=== PATIENT | female | born 1940 | race Caucasian/White ===

== ENCOUNTER 2022-02-08 20:26 | Observation (INO) ==
[2022-02-08] MEDS ORDERED: 0.9 % Sodium Chloride 1,000 ML IVC ONE ×2 (21:05→22:30)
[2022-02-08 21:13] LABS: Bilirubin,Urine Negative (Negative); Blood,Urine Negative (Negative); Clarity,Urine Clear (Clear); Color,Urine Yellow (Yellow); Glucose,Urine (UA) >=1000 mg/dL (Normal); Ketones,Urine Trace mg/dL (Negative); Leukocyte Esterase,Urine Negative (Negative); Nitrite,Urine Negative (Negative); PH,Urine 5.5 pH Units (5.0-8.0); Protein,Urine Negative (Neg-Trace); Urobilinogen,Urine Normal (Normal)
[2022-02-08 21:20] LABS: Bacteria,Urine Few per hpf (None-Few); RBC,Urine 0-3 per hpf (0-3); Squamous Epithelial Cell,Urine Few per hpf (None-Few); WBC,Urine 0-3 per hpf (0-3)
[2022-02-08 21:44] LABS: Basophils # 0.1 K/mcL (0.0-0.2); Basophils % 1.1 %; Eosinophils # 0.1 K/mcL (0.0-0.6); Eosinophils % 1.3 %; Hematocrit 41.9 % (35.3-44.9); Hemoglobin 13.9 g/dL (11.5-15.4); Immature Granulocytes % 0.3 % (0-4); Lymphocytes # 2.2 K/mcL (0.6-4.6); Mean Corpuscular HGB Conc 33.2 g/dL (31.6-35.5); Mean Corpuscular Hemoglobin 29.6 pg (28.0-33.3); Mean Corpuscular Volume 89.3 fL (83.0-100.0); Mean Platelet Volume 9.7 fL (9.4-12.4); Monocytes # 0.7 K/mcL (0.0-1.3); Monocytes % 9.3 %; Neutrophils # 4.1 K/mcL (1.6-8.9); Platelet Count 347 K/mcL (140-400); Red Blood Count 4.69 M/mcL (3.82-4.97); Red Cell Distribution Width 13.2 % (11.5-14.5); White Blood Count 7.2 K/mcL (4.3-11.1)
[2022-02-08 21:50] LABS: INR 1.1; Prothrombin Time 12.1 Seconds (9.4-12.1)
[2022-02-08 21:58] LABS: Alanine Aminotransferase 12 Units/L (7-52); Albumin 4.4 g/dL (3.5-5.7); Albumin/Globulin Ratio 1.8 (1.1-2.2); Alkaline Phosphatase 35 Units/L (34-104); Aspartate Amino Transferase 12 Units/L (13-39); BUN/Creatinine Ratio 31 (6-26); Bilirubin,Total 0.4 mg/dL (0.3-1.0); Blood Urea Nitrogen 38 mg/dL (8-23); Calcium 10.5 mg/dL (8.6-10.3); Carbon Dioxide 26 mEq/L (23-29); Chloride 101 mEq/L (98-107); Globulin 2.4 g/dL (2.4-3.5); Glucose 253 mg/dL (70-105); Magnesium 1.7 mg/dL (1.6-2.6); Osmolality,Calculated 304 (280-300); Phosphorous 4.3 mg/dL (2.7-4.5); Potassium 4.2 mEq/L (3.5-5.1); Sodium 138 mEq/L (136-145); Total Protein 6.8 g/dL (6.4-8.9); eGFR For African Americans 51 (> 60); eGFR For Non-African Americans 42 (> 60)
[2022-02-08 22:01] LABS: Troponin I < 0.03 ng/mL (< 0.04)
[2022-02-08 22:07] LABS: VBG HCO3 25 mEq/L (21-27); VBG PCO2 37 mmHg (41-51); VBG PH 7.44 pH Units (7.32-7.42); VBG PO2 71 mmHg (25-50)
[2022-02-08 22:38] LABS: Thyroid Stimulating Hormone 5.055 mcIU/mL (0.340-5.600)
[2022-02-09] MEDS ORDERED: Naloxone 0.4 MG/ML INJ IVP PRN (02:14)
[2022-02-09] MEDS: 0.9 % Sodium Chloride 1,000 ML IVC SCH ×2 (03:13→16:42)
[2022-02-09] MEDS: *HR* Enoxaparin 30 MG/0.3 ML SYRINGE SQ SCH (06:07)
[2022-02-09] MEDS: Aspirin Enteric Coated 81 MG Tablet PO SCH (09:06)
[2022-02-09] MEDS: lisinopriL 5 MG TABLET PO SCH (09:06)
[2022-02-09] MEDS: *HR* Metformin 500 MG TABLET PO SCH ×2 (09:06→16:38)
[2022-02-09] MEDS: amLODIPine 5 MG TABLET PO SCH (09:06)
[2022-02-09] MEDS: (Empagliflozin [Jardiance] 25 MG PO SCH (09:06)
[2022-02-09] MEDS: Acetaminophen 325 MG TABLET PO PRN ×2 (12:58→20:48)
[2022-02-09] MEDS ORDERED: *HR* LORazepam 0.5 MG TABLET PO ONE (14:58)
[2022-02-09] MEDS: Insulin DETEMIR 100 UNIT/ML X5UNITS SUBQ SCH (20:50)
[2022-02-09] MEDS: BuPROPion XL (24 HR) 150 MG TABLET PO SCH (20:50)
[2022-02-10] MEDS: *HR* Enoxaparin 30 MG/0.3 ML SYRINGE SQ SCH (05:26)
[2022-02-10] MEDS: Aspirin Enteric Coated 81 MG Tablet PO SCH (08:24)
[2022-02-10] MEDS: *HR* Metformin 500 MG TABLET PO SCH ×2 (08:24→16:09)
[2022-02-10] MEDS: Megestrol Acetate 400 MG/10 ML UDC PO SCH (08:25)
[2022-02-10] MEDS: lisinopriL 5 MG TABLET PO SCH (08:25)
[2022-02-10] MEDS: amLODIPine 5 MG TABLET PO SCH (08:25)
[2022-02-10] MEDS: Insulin DETEMIR 100 UNIT/ML X5UNITS SUBQ SCH ×2 (08:26→20:09)
[2022-02-10] MEDS: (Empagliflozin [Jardiance] 25 MG PO SCH (08:27)
[2022-02-10 10:43] LABS: Basophils # 0.1 K/mcL (0.0-0.2); Basophils % 0.5 %; Eosinophils % 0.1 %; Hematocrit 36.5 % (35.3-44.9); Hemoglobin 12.1 g/dL (11.5-15.4); Immature Granulocytes % 0.5 % (0-4); Lymphocytes # 0.9 K/mcL (0.6-4.6); Lymphocytes % 8.1 %; Mean Corpuscular HGB Conc 33.2 g/dL (31.6-35.5); Mean Corpuscular Hemoglobin 29.3 pg (28.0-33.3); Mean Corpuscular Volume 88.4 fL (83.0-100.0); Mean Platelet Volume 9.7 fL (9.4-12.4); Monocytes # 0.5 K/mcL (0.0-1.3); Monocytes % 4.3 %; Neutrophils # 9.1 K/mcL (1.6-8.9); Platelet Count 296 K/mcL (140-400); Red Blood Count 4.13 M/mcL (3.82-4.97); Red Cell Distribution Width 13.1 % (11.5-14.5); Segmented Neutrophils % 86.5 %; White Blood Count 10.6 K/mcL (4.3-11.1)
[2022-02-10 12:03] LABS: BUN/Creatinine Ratio 22 (6-26); Blood Urea Nitrogen 18 mg/dL (8-23); Calcium 9.3 mg/dL (8.6-10.3); Carbon Dioxide 21 mEq/L (23-29); Chloride 105 mEq/L (98-107); Glucose 178 mg/dL (70-105); Osmolality,Calculated 294 (280-300); Potassium 3.9 mEq/L (3.5-5.1); Sodium 139 mEq/L (136-145); eGFR For African Americans > 60 (> 60); eGFR For Non-African Americans > 60 (> 60)
[2022-02-10] MEDS: Acetaminophen 325 MG TABLET PO PRN (17:13)
[2022-02-10] MEDS: BuPROPion XL (24 HR) 150 MG TABLET PO SCH (20:09)
[2022-02-11 04:52] LABS: Basophils # 0.1 K/mcL (0.0-0.2); Basophils % 0.4 %; Eosinophils # 0.1 K/mcL (0.0-0.6); Eosinophils % 0.6 %; Hemoglobin 12.2 g/dL (11.5-15.4); Immature Granulocytes % 0.4 % (0-4); Lymphocytes # 1.7 K/mcL (0.6-4.6); Lymphocytes % 13.2 %; Mean Corpuscular HGB Conc 33.9 g/dL (31.6-35.5); Mean Corpuscular Hemoglobin 29.8 pg (28.0-33.3); Mean Platelet Volume 9.8 fL (9.4-12.4); Monocytes # 1.2 K/mcL (0.0-1.3); Monocytes % 9.2 %; Platelet Count 308 K/mcL (140-400); Red Blood Count 4.09 M/mcL (3.82-4.97); Red Cell Distribution Width 13.2 % (11.5-14.5); Segmented Neutrophils % 76.2 %; White Blood Count 13.1 K/mcL (4.3-11.1)
[2022-02-11 05:07] LABS: Alanine Aminotransferase 10 Units/L (7-52); Albumin 3.9 g/dL (3.5-5.7); Albumin/Globulin Ratio 1.9 (1.1-2.2); Alkaline Phosphatase 32 Units/L (34-104); Aspartate Amino Transferase 14 Units/L (13-39); BUN/Creatinine Ratio 27 (6-26); Bilirubin,Total 0.5 mg/dL (0.3-1.0); Blood Urea Nitrogen 25 mg/dL (8-23); Calcium 9.5 mg/dL (8.6-10.3); Carbon Dioxide 22 mEq/L (23-29); Chloride 109 mEq/L (98-107); Globulin 2.1 g/dL (2.4-3.5); Glucose 107 mg/dL (70-105); Magnesium 1.4 mg/dL (1.6-2.6); Osmolality,Calculated 299 (280-300); Potassium 3.6 mEq/L (3.5-5.1); Sodium 142 mEq/L (136-145); eGFR For African Americans > 60 (> 60); eGFR For Non-African Americans 57 (> 60)
[2022-02-11] MEDS: *HR* Enoxaparin 30 MG/0.3 ML SYRINGE SQ SCH (05:53)
[2022-02-11] MEDS: Insulin DETEMIR 100 UNIT/ML X5UNITS SUBQ SCH (07:21)
[2022-02-11] MEDS: lisinopriL 5 MG TABLET PO SCH (08:47)
[2022-02-11] MEDS: amLODIPine 5 MG TABLET PO SCH (08:47)
[2022-02-11] MEDS: Megestrol Acetate 400 MG/10 ML UDC PO SCH (08:48)
[2022-02-11] MEDS: Acetaminophen 325 MG TABLET PO PRN ×2 (08:48→17:04)
[2022-02-11] MEDS: *HR* Metformin 500 MG TABLET PO SCH ×2 (08:49→17:04)
[2022-02-11] MEDS: Aspirin Enteric Coated 81 MG Tablet PO SCH (08:49)
[2022-02-11] MEDS: (Empagliflozin [Jardiance] 25 MG PO SCH (09:01)
[2022-02-12] MEDS: BuPROPion XL (24 HR) 150 MG TABLET PO SCH ×2 (00:35→20:25)
[2022-02-12] MEDS: Insulin DETEMIR 100 UNIT/ML X5UNITS SUBQ SCH ×3 (00:35→20:16)
[2022-02-12] MEDS: *HR* Enoxaparin 30 MG/0.3 ML SYRINGE SQ SCH (04:36)
[2022-02-12] MEDS: Acetaminophen 325 MG TABLET PO PRN ×3 (06:51→20:15)
[2022-02-12 07:19] LABS: Hematocrit 40.6 % (35.3-44.9); Hemoglobin 13.2 g/dL (11.5-15.4); Mean Corpuscular HGB Conc 32.5 g/dL (31.6-35.5); Mean Corpuscular Hemoglobin 29.5 pg (28.0-33.3); Mean Corpuscular Volume 90.6 fL (83.0-100.0); Mean Platelet Volume 10.3 fL (9.4-12.4); Platelet Count 315 K/mcL (140-400); Red Blood Count 4.48 M/mcL (3.82-4.97); Red Cell Distribution Width 13.4 % (11.5-14.5); White Blood Count 12.5 K/mcL (4.3-11.1)
[2022-02-12 07:47] LABS: Bilirubin,Urine Negative (Negative); Blood,Urine Negative (Negative); Clarity,Urine Slightly Cloudy (Clear); Color,Urine Yellow (Yellow); Glucose,Urine (UA) 500 mg/dL (Normal); Ketones,Urine 80 mg/dL (Negative); Leukocyte Esterase,Urine Negative (Negative); Nitrite,Urine Negative (Negative); PH,Urine 5.5 pH Units (5.0-8.0); Protein,Urine Negative (Neg-Trace); Specific Gravity,Urine >= 1.030 (1.010-1.025); Urobilinogen,Urine Normal (Normal)
[2022-02-12 07:48] LABS: Budding Yeast,Urine Few per hpf (None Seen); RBC,Urine 0-3 per hpf (0-3)
[2022-02-12 07:49] LABS: Bacteria,Urine Few per hpf (None-Few); Mucus,Urine Few per lpf (None-Few); Squamous Epithelial Cell,Urine Few per hpf (None-Few)
[2022-02-12 07:58] LABS: BUN/Creatinine Ratio 37 (6-26); Blood Urea Nitrogen 34 mg/dL (8-23); Calcium 10.1 mg/dL (8.6-10.3); Carbon Dioxide 18 mEq/L (23-29); Chloride 107 mEq/L (98-107); Glucose 154 mg/dL (70-105); Osmolality,Calculated 309 (280-300); Sodium 144 mEq/L (136-145); eGFR For African Americans > 60 (> 60); eGFR For Non-African Americans 59 (> 60)
[2022-02-12] MEDS: *HR* Metformin 500 MG TABLET PO SCH ×2 (09:03→18:23)
[2022-02-12] MEDS: amLODIPine 5 MG TABLET PO SCH (09:04)
[2022-02-12] MEDS: lisinopriL 5 MG TABLET PO SCH (09:04)
[2022-02-12] MEDS: Aspirin Enteric Coated 81 MG Tablet PO SCH (09:04)
[2022-02-12] MEDS: Magnesium Oxide 400 MG TABLET PO SCH (09:05)
[2022-02-12] MEDS: (Empagliflozin [Jardiance] 25 MG PO SCH (09:05)
[2022-02-12] MEDS: Megestrol Acetate 400 MG/10 ML UDC PO SCH (09:12)
[2022-02-12] MEDS: Fluconazole 100 MG TABLET PO SCH (18:22)
[2022-02-12] MEDS: cephALEXin 500 MG CAPSULE PO SCH ×2 (18:22→20:16)
[2022-02-13] MEDS: *HR* Enoxaparin 30 MG/0.3 ML SYRINGE SQ SCH (04:01)
[2022-02-13] MEDS: Acetaminophen 325 MG TABLET PO PRN ×2 (08:09→22:06)
[2022-02-13] MEDS: Fluconazole 100 MG TABLET PO SCH (08:10)
[2022-02-13] MEDS: lisinopriL 5 MG TABLET PO SCH (08:10)
[2022-02-13] MEDS: Megestrol Acetate 400 MG/10 ML UDC PO SCH (08:10)
[2022-02-13] MEDS: Aspirin Enteric Coated 81 MG Tablet PO SCH (08:10)
[2022-02-13] MEDS: amLODIPine 5 MG TABLET PO SCH (08:10)
[2022-02-13] MEDS: cephALEXin 500 MG CAPSULE PO SCH (08:11)
[2022-02-13] MEDS: Magnesium Oxide 400 MG TABLET PO SCH (08:11)
[2022-02-13] MEDS: Insulin DETEMIR 100 UNIT/ML X5UNITS SUBQ SCH ×2 (08:11→22:07)
[2022-02-13] MEDS: (Empagliflozin [Jardiance] 25 MG PO SCH (08:11)
[2022-02-13] MEDS: *HR* Metformin 500 MG TABLET PO SCH ×2 (08:11→15:35)
[2022-02-13] MEDS: polyethylene glycoL 3350 17 GM POWD.PACK PO SCH (18:16)
[2022-02-13] MEDS: BuPROPion XL (24 HR) 150 MG TABLET PO SCH (22:06)
[2022-02-14 05:00] LABS: Basophils % 0.3 %; Eosinophils # 0.2 K/mcL (0.0-0.6); Eosinophils % 1.7 %; Hematocrit 37.3 % (35.3-44.9); Hemoglobin 12.4 g/dL (11.5-15.4); Immature Granulocytes % 0.3 % (0-4); Lymphocytes % 17.6 %; Mean Corpuscular HGB Conc 33.2 g/dL (31.6-35.5); Mean Corpuscular Hemoglobin 29.7 pg (28.0-33.3); Mean Corpuscular Volume 89.2 fL (83.0-100.0); Mean Platelet Volume 10.3 fL (9.4-12.4); Monocytes % 8.9 %; Neutrophils # 8.2 K/mcL (1.6-8.9); Platelet Count 322 K/mcL (140-400); Red Blood Count 4.18 M/mcL (3.82-4.97); Red Cell Distribution Width 13.8 % (11.5-14.5); Segmented Neutrophils % 71.2 %; White Blood Count 11.5 K/mcL (4.3-11.1)
[2022-02-14 05:13] LABS: BUN/Creatinine Ratio 53 (6-26); Blood Urea Nitrogen 48 mg/dL (8-23); Calcium 10.3 mg/dL (8.6-10.3); Carbon Dioxide 28 mEq/L (23-29); Chloride 109 mEq/L (98-107); Glucose 83 mg/dL (70-105); Osmolality,Calculated 314 (280-300); Potassium 3.6 mEq/L (3.5-5.1); Sodium 146 mEq/L (136-145); eGFR For African Americans > 60 (> 60); eGFR For Non-African Americans 60 (> 60)
[2022-02-14] MEDS: *HR* Enoxaparin 30 MG/0.3 ML SYRINGE SQ SCH (06:35)
[2022-02-14] MEDS: Insulin DETEMIR 100 UNIT/ML X5UNITS SUBQ SCH ×2 (07:55→20:06)
[2022-02-14] MEDS: *HR* Metformin 500 MG TABLET PO SCH ×2 (07:55→16:55)
[2022-02-14] MEDS: (Empagliflozin [Jardiance] 25 MG PO SCH (07:57)
[2022-02-14] MEDS: Aspirin Enteric Coated 81 MG Tablet PO SCH (08:00)
[2022-02-14] MEDS: Fluconazole 100 MG TABLET PO SCH (08:00)
[2022-02-14] MEDS: lisinopriL 5 MG TABLET PO SCH (08:00)
[2022-02-14] MEDS: Magnesium Oxide 400 MG TABLET PO SCH (08:00)
[2022-02-14] MEDS: amLODIPine 5 MG TABLET PO SCH (08:00)
[2022-02-14] MEDS: Megestrol Acetate 400 MG/10 ML UDC PO SCH (08:01)
[2022-02-14] MEDS: polyethylene glycoL 3350 17 GM POWD.PACK PO SCH (08:01)
[2022-02-14] MEDS ORDERED: 0.9 % Sodium Chloride 1,000 ML IVC SCH (12:45)
[2022-02-14] MEDS: BuPROPion XL (24 HR) 150 MG TABLET PO SCH (20:06)
[2022-02-15] MEDS: *HR* Enoxaparin 30 MG/0.3 ML SYRINGE SQ SCH (04:10)
[2022-02-15 05:21] LABS: Basophils # 0.1 K/mcL (0.0-0.2); Basophils % 0.6 %; Eosinophils # 0.3 K/mcL (0.0-0.6); Eosinophils % 2.9 %; Hemoglobin 11.1 g/dL (11.5-15.4); Immature Granulocytes % 0.3 % (0-4); Lymphocytes # 2.1 K/mcL (0.6-4.6); Lymphocytes % 23.1 %; Mean Corpuscular HGB Conc 32.6 g/dL (31.6-35.5); Mean Corpuscular Hemoglobin 29.8 pg (28.0-33.3); Mean Corpuscular Volume 91.2 fL (83.0-100.0); Mean Platelet Volume 10.4 fL (9.4-12.4); Monocytes # 0.8 K/mcL (0.0-1.3); Monocytes % 8.4 %; Neutrophils # 5.8 K/mcL (1.6-8.9); Platelet Count 301 K/mcL (140-400); Red Blood Count 3.73 M/mcL (3.82-4.97); Red Cell Distribution Width 13.6 % (11.5-14.5); Segmented Neutrophils % 64.7 %
[2022-02-15 05:36] LABS: Alanine Aminotransferase 12 Units/L (7-52); Albumin 3.5 g/dL (3.5-5.7); Albumin/Globulin Ratio 1.8 (1.1-2.2); Alkaline Phosphatase 36 Units/L (34-104); Aspartate Amino Transferase 14 Units/L (13-39); BUN/Creatinine Ratio 51 (6-26); Bilirubin,Total 0.5 mg/dL (0.3-1.0); Blood Urea Nitrogen 39 mg/dL (8-23); Calcium 9.2 mg/dL (8.6-10.3); Carbon Dioxide 24 mEq/L (23-29); Chloride 110 mEq/L (98-107); Globulin 1.9 g/dL (2.4-3.5); Glucose 109 mg/dL (70-105); Magnesium 1.8 mg/dL (1.6-2.6); Osmolality,Calculated 310 (280-300); Potassium 3.4 mEq/L (3.5-5.1); Sodium 145 mEq/L (136-145); Total Protein 5.4 g/dL (6.4-8.9); eGFR For African Americans > 60 (> 60); eGFR For Non-African Americans > 60 (> 60)
[2022-02-15] MEDS: Magnesium Oxide 400 MG TABLET PO SCH (08:38)
[2022-02-15] MEDS: Aspirin Enteric Coated 81 MG Tablet PO SCH (08:39)
[2022-02-15] MEDS: amLODIPine 5 MG TABLET PO SCH (08:39)
[2022-02-15] MEDS: Fluconazole 100 MG TABLET PO SCH (08:39)
[2022-02-15] MEDS: lisinopriL 5 MG TABLET PO SCH (08:39)
[2022-02-15] MEDS: Megestrol Acetate 400 MG/10 ML UDC PO SCH (08:40)
[2022-02-15] MEDS: *HR* Metformin 500 MG TABLET PO SCH (08:40)
[2022-02-15] MEDS: Insulin DETEMIR 100 UNIT/ML X5UNITS SUBQ SCH (08:41)
[2022-02-15] MEDS: polyethylene glycoL 3350 17 GM POWD.PACK PO SCH (08:41)
[2022-02-15] MEDS: (Empagliflozin [Jardiance] 25 MG PO SCH (08:41)
[2022-02-15] MEDS ORDERED: *HR* Dextrose 50 % in Water (Syg) 50 ML SYRINGE IVP PRN (09:35)
[2022-02-15] MEDS ORDERED: Dextrose Gel 15 GM/37.5 ML TUBE PO PRN ×2 (09:35)
[2022-02-15] MEDS ORDERED: D5% in Water 1,000 ML IVC PRN (09:35)
[2022-02-15 10:27] VITALS: BP 113/72; PULSE 84; RESP 15; TEMP 97.7; O2SAT 97
[2022-02-15] MEDS ORDERED: Insulin LISPRO 300 UNITS/3 ML VIAL SUBQ SCH (11:30)
== END 2022-02-15 15:05 | disposition hospice, home (50) ==
LOC: EMEROOGRE 20:26 → INPGRE 02-09 01:31 → INTOOBSV 02-09 01:31 → INPGRE 02-09 02:19
PROVIDERS: ADMIT Family Medicine; ATTEND Family Medicine